=== PATIENT | female | born 1995 | race Two or more races ===

== ENCOUNTER 2018-01-02 13:32 | Outpatient (CLI) | payer OTHER ==
[~2018-01-02 13:32] MED LIST: ESTAZOLAM2 MG; RISPERDAL2 MG
== END 2018-01-02 13:42 | disposition home or self-care (01) ==
LOC: SONOGRAMA 13:32 → MAMO-SONO 13:45
DX: E03.9 Hypothyroidism, unspecified (principal)

== ENCOUNTER 2024-02-27 10:19 | Emergency (ER) | payer OTHER ==
[~2024-02-27] VITALS: Ht 160 cm; Wt 64.4 kg
[2024-02-27] MEDS ORDERED: REMERON15 MG PO (10:29)
[2024-02-27] MEDS ORDERED: MINIPRESS2 MG PO (10:30)
[2024-02-27] MEDS ORDERED: ADDERALL 10 MG10 MG (10:31)
[2024-02-27] MEDS ORDERED: TRAMADOL HCL 50 MG TABLET PO ONE (12:15)
== END 2024-02-27 13:44 | disposition home or self-care (01) ==
LOC: ER 10:20
DX: S09.8XXA Other specified injuries of head, initial encounter (principal); W19.XXXA Unspecified fall, initial encounter; Y93.89 Activity, other specified; Y92.89 Other specified places as the place of occurrence of the external cause; Y99.8 Other external cause status; M94.0 Chondrocostal junction syndrome [Tietze]; Z88.0 Allergy status to penicillin; Z88.6 Allergy status to analgesic agent; Z91.013 Allergy to seafood; Z91.040 Latex allergy status

== ENCOUNTER 2025-08-13 08:25 | Outpatient (CLI) | payer OTHER ==
[~2025-08-13 08:25] MED LIST changes: +ADDERALL 10 MG10 MG; +MINIPRESS2 MG PO; +REMERON15 MG PO
== END 2025-08-13 08:34 | disposition home or self-care (01) ==
LOC: RAD 08:25
PROVIDERS: ATTEND Internal Medicine Pulmonary Disease
DX: R06.02 Shortness of breath (principal); J45.31 Mild persistent asthma with (acute) exacerbation